=== PATIENT | male | born 1970 | race Caucasian/White ===

== ENCOUNTER 2023-11-02 09:04 | Day surgery (SDC) | payer MEDICARE, MEDICAID ==
[~2023-11-02] VITALS: Ht 167.6 cm; Wt 74.2 kg
[~2023-11-02 09:04] MED LIST: LR 1,000 ML IV SCH; Ondansetron 4 MG/2 ML VIAL IV PRN
[2023-11-02 10:29] VITALS: BP 133/100; PULSE 96; TEMP 98.1
[2023-11-02] MEDS ORDERED: ATROVENT I0.2 MG/1 M IH (10:34)
[2023-11-02] MEDS ORDERED: TRELEGY ELLIPT1 EACH IH (10:34)
[2023-11-02] MEDS ORDERED: PROTONIX 40MG T40 MG PO (10:34)
[2023-11-02] MEDS ORDERED: UNIPHYL 400MG400 MG PO (10:35)
[2023-11-02 10:50] VITALS: BP 143/97; PULSE 93
--- NOTE | 2023-11-02 10:50 | NUR ---
The patient ambulated back to [place] [address] independently using a steady gait and appeared to tolerate the activity well. Vital signs obtained. Consent signed. 20G IV started in right hand with one stick, LR Infusing without difficulty. Assessment completed. Home medications reconcilled. Warm blanket provided. at bedside. Call light is within reach. Denies any further needs.
[2023-11-02] MEDS ORDERED: Lidocaine PF 2% (20 MG/ML) 5 ML VIAL ONE (11:58)
[2023-11-02 12:28] VITALS: BP 126/87; PULSE 96; TEMP 98.3
[2023-11-02 12:45] VITALS: BP 142/95; PULSE 98
[2023-11-02 13:00] VITALS: BP 146/93; PULSE 85
--- NOTE | 2023-11-02 17:42 | NUR ---
[id number]: PT TO ENDO RECOVERY BAY FROM ENDO [facility] S/P COLONOSCOPY, POLYPECTOMY, BX'S A&O, PLACED ON MONITOR, VSS ON RA RECEIVED REPORT AND ASSUMED CARE OF PT FROM ENDO RN SPOUSE AT BEDSIDE PROVIDED FOOD/FLUIDS, TOLERATING WELL MD IN TO SEE PT POST-PROCEDURE PT HAS REMAINED A&O, NAD, VSS ON RA, TOLERATING PO, IS WITHOUT SIGNIFICANT COMPLAINT, WITH SAFE GAIT THRU OUT STAY IV D/C'D. D/C INSTRUCTIONS, ANY FOLLOW UP REVIEWED AND HANDED TO PT. ALL QUESTIONS AND CONCERNS ADDRESSED TO PT SATISFACTION. TAKEN TO EXIT VIA W/C WITH ALL BELONGINGS AND PAPERWORK IN HAND, ASSISTED INTO PASSENGER SEAT OF POV. FAMILY TO DRIVE HOME.
== END 2023-11-02 13:00 | disposition home or self-care (01) ==
LOC: SDCO 09:04
DX: D12.5 Benign neoplasm of sigmoid colon (principal); K63.89 Other specified diseases of intestine; K52.9 Noninfective gastroenteritis and colitis, unspecified; R93.5 Abnormal findings on diagnostic imaging of other abdominal regions, including retroperitoneum; Z87.891 Personal history of nicotine dependence
CPT/HCPCS: J2704; J7120